=== PATIENT | male | born 1945 | race Caucasian/White ===

== ENCOUNTER 2017-05-01 08:31 | Inpatient (IN) | payer OTHER ==
--- NOTE | 2017-04-25 15:51 | GHP ---
[f rep st] PREOP HISTORY AND PHYSICAL DATE OF ADMISSION: 05/01/2017 DIAGNOSIS: Right knee osteoarthritis. PLANNED SURGERY: Right knee total knee arthroplasty. HPI: Patient is a 71-year-old male with a long history of right knee pain secondary to osteoarthriti s. He has had a long course of conservative treatment including physical therapy, bracing and cortis one injections. After a long course of therapy, he has essentially continued to have pain and now re quires surgical intervention. PAST MEDICAL HISTORY: History of anxiety, osteoarthritis of bilateral knees. PAST SURGERY HISTORY: Tonsillectomy, cataract surgery left eye for detached retina, and right knee a rthroscopy. MEDICATIONS: Levothyroxine, metoprolol, Prevnar 13 and triamterene/hydrochlorothiazide. ALLERGIES: No known drug allergies. SOCIAL HISTORY: Occasional alcohol use. No tobacco or drug use. PHYSICAL EXAM: GENERAL: He is alert and oriented. NECK: Supple. No carotid bruits are heard. Fu ll range of motion. CARDIAC: Regular rate and rhythm. Normal S1, S2. PULMONARY: Lungs are clear. ABDOMEN: Normoacti ve bowel sounds. Nontender, nondistended. ASSESSMENT AND PLAN: Patient has a long history of right knee pain secondary to osteoarthritis. Aft er discussing risks and benefits of surgery, which were detailed for him today, he would like to proc eed forward with operative intervention. /[id number]/MODL
[~2017-05-01 08:31] MED LIST: ACETAMINOPHEN 500 MG TAB PO ONE; ROPIVACAINE 0.2% 80 MG, EPINEPHrine 0.2 MG, KETOROLAC TROMETHAMINE 30 MG, morphINE 10 M... IU ONE; TRANEXAMIC ACID 3,000 MG in NS 50 ML IRR ONE; ceFAZolin 2 GM/SWFI 2 GM/20 ML SYR IVP ONE
[2017-05-01] MEDS ORDERED: BUPIVACAINE/EPI 0.5% 30 ML SDV ONE (08:36)
[2017-05-01] MEDS ORDERED: CALCIUM CHLORIDE 1 GM/10 ML INJ ONE (08:37)
[2017-05-01] MEDS ORDERED: THROMBIN (BOVINE) 5,000 UNIT VIAL TP ONE (08:37)
[2017-05-01] MEDS ORDERED: POLYMYXIN B SULFATE 500,000 UNIT/10 ML SYR IRR ONE (08:37)
[2017-05-01] MEDS ORDERED: BACITRACIN 50,000 UNITS/10 ML SYR IRR ONE (08:37)
[2017-05-01] MEDS ORDERED: LR 1,000 ML IV ONE (09:35)
[2017-05-01] MEDS ORDERED: ACETAMINOPHEN 500 MG TAB ONE (10:20)
[2017-05-01] MEDS ORDERED: ceFAZolin 2 GM/SWFI 20 ML SYR IVP ONE (10:20)
--- NOTE | 2017-05-01 11:10 | PDHPUP ---
History & Physical Update H&P update statement: This history and physical update is based on an assessment of the patient which was completed after admission or registration (within 24 hours), but prior to the surgery/procedure. H&P update: H&P reviewed & patient examined, no change in patient's condition since H&P completed
--- NOTE | 2017-05-01 13:21 | PDANEPAE ---
ANE History of Present Illness right knee OA ANE Past Medical History - Cardiovascular History Hx Hypertension: Yes Hx Arrhythmias: No Hx Chest Pain: No Hx Coronary Artery / Peripheral Vascular Disease: No Hx CHF / Valvular Disease: No Hx Palpitations: No Cardiovascular History Comment: WELL CONTROLLED - Pulmonary History Hx COPD: No Hx Asthma/Reactive Airway Disease: No Hx Recent Upper Respiratory Infection: No Hx Oxygen in Use at Home: No Hx Sleep Apnea: No Sleep Apnea Screening Result - Last Documented: Negative - Neurologic History Hx Cerebrovascular Accident: No Hx Seizures: No Hx Dementia: No - Endocrine History Hx Diabetes: Yes Endocrine History Comment: HYPOTHYROID - Renal History Hx Renal Disorders: No - Liver History Hx Hepatic Disorders: No - Neurological & Psychiatric Hx Hx Neurological and Psychiatric Disorders: No - Cancer History Hx Cancer: No - Congenital Disorder History Hx Congenital Disorders: No - GI History Hx Gastrointestinal Disorders: Yes Gastrointestinal History Comment: ACID REFLUX - Other Health History Other Health History: NEG - Chronic Pain History Chronic Pain: Yes (KNEE PAIN L) - Surgical History Prior Surgeries: TONSILLECTOMY. SCOPE L KNEE. CATARACTS. RETINAL SURGERY ANE Review of Systems Review of Systems: - Exercise capacity METS (RN): 4 METS ANE Patient History - Allergies Allergies/Adverse Reactions: No Known Allergies Allergy (Unverified 04/02/17 11:22) - Home Medications Home medications: home medication list seen and reviewed Home Medications: Aspirin [Aspirin 81mg (*)] 81 mg PO HS 04/02/17 [Last Taken 1 Week Ago ~04/24/17 ] C/E/Zn/Cu/OM3/DHA/EPA/LUT/ZEAX [Preservision Areds 2 Softgel] 1 each PO DAILY [Last Taken 1 Week Ago ~04/24/17] Carboxymethylcellulose 1% [Refresh Celluvisc (*)] 1 drop EACHEYE DAILY PRN 04/02 [Last Taken Unknown] Cholecalciferol Vit D3 [Vitamin D3 2000 units tab (OTC)] 4,000 units PO DAILY [Last Taken 1 Week Ago ~04/24/17] Levothyroxine [Synthroid 50 mcg (*)] 50 mcg PO DAILY06 04/02/17 [Last Taken Unknown] Metoprolol Succinate Xr [Toprol Xl 100 mg (*)] 100 mg PO DAILY 04/02/17 [Last Taken 05/01/17] Multivitamins [Multivitamin (*)] 1 each PO DAILY 04/02/17 [Last Taken 1 Week Ago ~04/24/17] [place]-3 Fatty Acids [Fish Oil 1000 mg (*)] 2,000 mg PO BID 04/02/17 [Last Taken 1 Week Ago ~04/24/17] Omeprazole [Prilosec 20 mg] 20 mg PO HS 04/02/17 [Last Taken Unknown] Triamterene/Hydrochlorothiazid [Triamterene-Hctz 37.5-25 mg Cp] 1 each PO DAILY 04/02/17 [Last Taken 1 Week Ago ~04/24/17] - NPO status NPO Since - Liquids (Date): 05/01/17 NPO Since - Liquids (Time): 05:30 NPO Since - Solids (Date): 04/30/17 NPO Since - Solids (Time): 20:30 - Smoking Hx Smoking Status: Former smoker - Family Anes Hx Family Hx Anesthesia Complications: NEG ANE Labs/Vital Signs - Vital Signs Blood Pressure: 149/93 Heart Rate: 71 Respiratory Rate: 18 O2 Sat (%): 92 Height: 165.1 cm Weight: 80.739 kg ANE Physical Exam - Airway Neck exam: FROM Mallampati Score: Class 2 Mouth exam: normal dental/mouth exam - Pulmonary Pulmonary: no respiratory distress - Cardiovascular Cardiovascular: regular rate and rhythym - ASA Status ASA Status: II ANE Anesthesia Plan Anesthesia Plan: spinal Regional Anesthesia: single shot NB, adductor canal FNB Urgent/Emergent Case: Vivian morrison completed preop but documented later for safe timely pt care
[2017-05-01] MEDS ORDERED: PHENYLEPHRINE HCL 100 MCG/ML SYR ONE (14:55)
[2017-05-01] MEDS ORDERED: PROPOFOL/EMULSION 500 MG/50 ML BOTTLE IV ONE (14:58)
[2017-05-01] MEDS ORDERED: fentaNYL 100 MCG/2 ML INJ IVP PRN (15:31)
[2017-05-01] MEDS ORDERED: LR 500 ML IV PRN (15:31)
[2017-05-01] MEDS ORDERED: HYDROmorphONE/DILAUDID 1 MG/ML INJ IVP PRN (15:31)
[2017-05-01] MEDS ORDERED: ONDANSETRON 4 MG/2 ML VIAL IVP PRN ×2 (15:31→15:56)
[2017-05-01] MEDS ORDERED: ALBUTEROL 3 ML DEYVIAL IH PRN (15:31)
[2017-05-01] MEDS ORDERED: NALOXONE HCL 0.4 MG/ML INJ IVP PRN (15:31)
[2017-05-01] MEDS ORDERED: HYDROCODONE/APAP 5/325 TAB PO PRN (15:31)
[2017-05-01] MEDS ORDERED: OXYCODONE/APAP 5/325 TAB PO PRN (15:31)
[2017-05-01] MEDS ORDERED: ACETAMINOPHEN 500 MG TAB PO PRN (15:31)
[2017-05-01] MEDS ORDERED: MAGNESIUM HYDROXIDE 30 ML UDCUP PO PRN (15:56)
[2017-05-01] MEDS ORDERED: PROMETHAZINE HCL 25 MG SUPPR PR PRN (15:56)
[2017-05-01] MEDS ORDERED: TAPENTADOL HCL 50 MG TAB PO PRN (15:56)
[2017-05-01] MEDS ORDERED: METOCLOPRAMIDE 10 MG/2 ML VIAL IVP PRN (15:56)
[2017-05-01] MEDS ORDERED: PROMETHAZINE HCL 25 MG/ML INJ IVP PRN (15:56)
[2017-05-01] MEDS ORDERED: DIPHENOXYLATE/ATROPINE LOMOTIL 1 TAB PO PRN (15:56)
[2017-05-01] MEDS ORDERED: TEMAZEPAM 15 MG CAP PO PRN (15:56)
[2017-05-01] MEDS ORDERED: ONDANSETRON DISINTEGRATING 4 MG TAB PO PRN (15:56)
[2017-05-01] MEDS ORDERED: CYCLOBENZAPRINE 10 MG TAB PO PRN (15:56)
[2017-05-01] MEDS ORDERED: POLYETHYLENE GLYCOL 3350 17 GM PKT PO PRN (15:56)
[2017-05-01] MEDS ORDERED: diphenhydrAMINE 25 MG CAP PO PRN (15:56)
[2017-05-01] MEDS ORDERED: LACTULOSE 20 GM/30 ML UDCUP PO PRN (15:56)
[2017-05-01] MEDS ORDERED: BISACODYL 10 MG SUPP PR PRN (15:56)
--- NOTE | 2017-05-01 15:56 | POSTOPPROG ---
Post Op Note Date of Operation: 05/01/17 Surgeon: Madhuri Real Heavy Duty Press Operator: coltrain Anesthesia: Epidural, Other (Specify) Pre-op Diagnosis: r knee oa Procedure: r tkr Inf/Abcess present in the surg proc area at time of surgery?: No Depth: Deep Incisional (Fascial) EBL: 100-500
[2017-05-01] MEDS ORDERED: CARBOXYMETHYLCELLULOSE 1% 0.4 ML DROPERETTE EACHEYE PRN (15:58)
[2017-05-01] MEDS ORDERED: LR 1,000 ML IV SCH (16:00)
--- NOTE | 2017-05-01 17:15 | GOP ---
[f rep st] OPERATIVE REPORT DATE OF OPERATION: 05/01/2017 SURGEON: Madhuri Real MD RESEARCH DEVELOPMENT DIRECTOR: Cristóbal Jennings, CSFA, LSA, whose presence was medically necessary. ANESTHESIA: By epidural plus adductor nerve block per Surgeon's request. PREOPERATIVE DIAGNOSIS: Right knee osteoarthritis. POSTOPERATIVE DIAGNOSIS: Right knee osteoarthritis. PROCEDURE PERFORMED: Right total knee arthroplasty. FINDINGS: INDICATIONS: This is a 71-year-old male with a several-month history of right knee pain worsening wi th use and with time despite multiple conservative measures. X-ray exam reveals [id number] osteoar thritic changes. He wishes to have surgery in order to resolve the problem. DESCRIPTION OF PROCEDURE: The patient was brought to the operating room after the right side had bee n identified as correct side by the patient, nurse and physician. Once in the operating room, was gi reyes an adductor canal nerve block. He was then given epidural nerve block, placed supine on the oper ating room table. Tourniquet was placed around the upper portion of the right leg and the right lowe r extremity was sterilely prepped and draped in the usual fashion using a GSI solution. Once prepped and draped, limb was exsanguinated, tourniquet inflated to 250 mmHg. A linear incision was made on the anterior portion of the knee 1 handbreadth above and below the river lla, and with sharp dissection carried down through the skin and subcutaneous layers, with bleeding c ontrolled using electrocautery. A medial parapatellar approach was made through the extensor mechani sm with patella brought to the side but not everted. It was noted to have [id number] osteoarthriti c changes in the medial compartment, and grade 3-4 chondral changes noted to the patellofemoral luis rtment, and grade 3 chondral changes noted laterally. The ACL as well as medial and lateral meniscus were removed. Drill hole was made 1 cm anterior to th e intercondylar notch, with an intramedullary guide placed within the femur. The end cutting block w as set at 5 degrees of valgus. Once pinned into place, the intramedullary guide was removed, and an oscillating saw was used to remove the distal portion of the femur. Once achieving a smooth cut, the cutting block was removed. Cartilage was removed off the posterior condyles of the femur. The sizi ng guide was put in place with a size 7, seemed to fit best without notching the anterior cortex of t he femur. Therefore, drill holes were made and a size 7, 4-in-1 cutting block was put into place. T he anterior, posterior and chamfer cuts were made, and a size 7 trial was put into place, noted to fi t securely. The leg was able to achieve full extension, suggesting adequate amount of bone had been removed. Once centered properly on the distal end of the femur, lug holes were drilled for the femoral compone nt. Femoral trial was removed. The knee was brought to maximum flexion, tibia subluxed anteriorly a nd an external tibial guide was put into place, set in neutral varus/valgus and set in a minor amount of posterior slope. It was set to remove 2 mm from the low side of the femur. Once pinned into karen ce, a drop evonne was used to ensure proper alignment of the tibial tray. Once proper alignment was ens ured, a locking pin was placed within the cutting block. Oscillating saw was used to remove the prox imal portion of the tibia. Once removed, trial femoral component and trial tibial tray with liner we re put into place, and the knee was able to achieve full extension suggesting adequate amount of bone had been removed. The trials were then removed. The knee brought back to maximal flexion, tibia subluxed anteriorly. Multiple trials were placed on the tibia, noted a size E was noted to fit best. Therefore, it was pi nned into place. Medullary drill and a keel punch passed through the tibial tray after pins been rem althea from the tibia. The trial was then removed from the tibia. The knee was brought to full extens ion. The patella was then everted, measured to be 24 mm in thickness. Oscillating saw was used to r emove the posterior portion of the patella, leaving 15 mm of bone. Multiple trials were sized on the cut surface of the knee, noted a 35 mm patella button seemed to fit best and lug holes were drilled for a 35 mm button. All cut surfaces of bone were thoroughly irrigated with an antibiotic solution using pulsatile lavage , while cement was being mixed. Joint cocktail was injected in the posterior capsule along the perio steum of the femur and the tibia, and into the extensor mechanism. Once cement was doughy, it was pl aced on the proximal tibia and a size E Persona tibial tray from the Joshua was put into place, and e xcess cement removed using a [place] elevator. Cement was then placed on the posterior skids of the fe moral component with cement placed on the distal and anterior portions of the femur, with a size 7 ri ght cruciate-retaining Persona knee component from Joshua put into place, and excess cement removed u sing [place] elevator. Trial liner was placed in the tibial tray and the knee was brought to full exte nsion in order to pressurize cement. Cement was placed on the cut surface of the patella with a 35 m m patellar button clamped into place and excess cement removed using [place] elevator. Once cement had adequately hardened, any excess cement that was found was removed using combination of osteotome and rongeur. Multiple trials were placed in the tibial tray, note a 10 mm insert seemed to fit best. T herefore, a 10 mm Persona polyethylene component was put into the tibial tray. Once locked into plac e, the knee was thoroughly irrigated with tranexamic acid. The tourniquet was released at 48 minutes. Any bleeding was controlled using electrocautery. The wo und was then closed in layers using 0 Vicryl suture in a xacmia-xk-djgah type stitch for the extensor mechanism with Plasmagel placed intra-articularly; 0 Vicryl and 2-0 Vicryl suture for the subcutaneo us layers with Plasmagel placed external to the extensor mechanism, and a 3-0 V-Loc suture in a runni ng subcuticular stitch to close the skin. Then, 30 cc of Marcaine was infused around the actual skin incision itself. The wound was dressed with Steri-Strips, Xeroform, 4 x 4's, wrapped in Kerlix. Theresa g was completely undraped in the operating room, tourniquet removed from the thigh and an Blaine wrap pl aced around the knee. The patient was then transferred onto a stretcher, and sent to recovery room in good condition. TOURNIQUET TIME: 48 minutes. /[id number]/MODL
[2017-05-01] MEDS: traMADol 50 MG TAB PO SCH ×2 (18:01→23:37)
[2017-05-01] MEDS: ACETAMINOPHEN 325 MG TAB PO SCH ×2 (18:01→23:37)
[2017-05-01] MEDS: KETOROLAC 30 MG/1 ML SDV IVP SCH ×2 (18:02→23:37)
[2017-05-01] MEDS ORDERED: PANTOPRAZOLE SODIUM 40 MG TAB PO SCH (21:00)
[2017-05-01] MEDS: SENNOSIDES/DOCUSATE SODIUM TAB PO SCH (21:52)
[2017-05-01] MEDS: ceFAZolin 2 GM/DEXTROSE 100 ML IV SCH (21:52)
[2017-05-01] MEDS: FAMOTIDINE 20 MG TAB PO SCH (21:52)
[2017-05-01] MEDS: oxyCODONE IR 5 MG TAB PO PRN (21:53)
[2017-05-02] MEDS: ceFAZolin 2 GM/DEXTROSE 100 ML IV SCH (05:18)
[2017-05-02] MEDS: ACETAMINOPHEN 325 MG TAB PO SCH ×2 (05:18→12:35)
[2017-05-02] MEDS: KETOROLAC 30 MG/1 ML SDV IVP SCH ×2 (05:18→13:29)
[2017-05-02] MEDS: traMADol 50 MG TAB PO SCH ×2 (05:18→12:35)
[2017-05-02 05:27] LABS: HEMATOCRIT 35.8 % (40.0-51.0); HEMOGLOBIN 12.5 g/dL (13.7-17.5)
[2017-05-02] MEDS ORDERED: LEVOTHYROXINE 50 MCG TAB PO SCH (06:00)
[2017-05-02 08:09] VITALS: RESP 14; TEMP 97.9
[2017-05-02] MEDS: oxyCODONE IR 5 MG TAB PO PRN ×3 (08:45→13:31)
[2017-05-02] MEDS: FAMOTIDINE 20 MG TAB PO SCH (08:46)
[2017-05-02] MEDS: SENNOSIDES/DOCUSATE SODIUM TAB PO SCH (08:46)
[2017-05-02 08:47] VITALS: BP 108/72; PULSE 74
[2017-05-02] MEDS ORDERED: FLU VACC QS 2017-18 (3YR+)/PF 0.5 ML SYR (FLUARIX QUAD) IM ONE (08:49)
[2017-05-02] MEDS ORDERED: RIVAROXABAN 10 MG TAB PO SCH (09:00)
[2017-05-02] MEDS ORDERED: TRIAMTERENE/HCTZ 37.5/25 1 EACH CAP PO SCH (09:00)
[2017-05-02] MEDS ORDERED: METOPROLOL SUCCINATE XR 100 MG TAB PO SCH (09:00)
[2017-05-02 11:11] VITALS: O2SAT 91
--- NOTE | 2017-05-02 12:04 | SOAPPROG ---
SOAP Progress Note Assessment/Plan: Assessment: Plan: d/c home with PT 05/02/17 12:03 Subjective: Pt doing well, ready for d/c Objective: Vital Signs Temp Pulse Resp BP Pulse Ox 36.6 C 74 14 108/72 91 L 05/02/17 08:08 05/02/17 08:45 05/02/17 08:08 05/02/17 08:45 05/02/17 10:03 Laboratory Results 05/02/17 04:41 05/01/17 05/02/17 05/03/17 05:59 05:59 05:59 Intake Total 2340 200 Output Total 50 175 Balance 2290 25 Dressing CDI, calf NT, NVI - Time Spent With Patient Time Spent With Patient: 10 - Pending Discharge Pending Discharge Within 24 Hours: Yes Pending Discharge Within 48 Hours: No Pending Discharge Date: 05/03/17 Pending Discharge Time: 11:00 ICD10 Worksheet Patient Problems: Problems Problem Status Onset Arthritis of right knee Acute - ICD10 Problem Qualifiers (1) Arthritis of right knee
--- NOTE | 2017-05-02 12:06 | PDIAF ---
- Diagnosis Code Status: Full Code - Medication Management Discharge Medications: Medications to Continue on Transfer Aspirin [Aspirin 81mg (*)] 81 mg PO HS 04/02/17 [Last Taken 1 Week Ago ~04/24/17 ] C/E/Zn/Cu/OM3/DHA/EPA/LUT/ZEAX [Preservision Areds 2 Softgel] 1 each PO DAILY [Last Taken 1 Week Ago ~04/24/17] Carboxymethylcellulose 1% [Refresh Celluvisc (*)] 1 drop EACHEYE DAILY PRN 04/02 [Last Taken Unknown] Cholecalciferol Vit D3 [Vitamin D3 2000 units tab (OTC)] 4,000 units PO DAILY [Last Taken 1 Week Ago ~04/24/17] Levothyroxine [Synthroid 50 mcg (*)] 50 mcg PO DAILY06 04/02/17 [Last Taken Unknown] Metoprolol Succinate Xr [Toprol Xl 100 mg (*)] 100 mg PO DAILY 04/02/17 [Last Taken 05/01/17] Multivitamins [Multivitamin (*)] 1 each PO DAILY 04/02/17 [Last Taken 1 Week Ago ~04/24/17] [place]-3 Fatty Acids [Fish Oil 1000 mg (*)] 2,000 mg PO BID 04/02/17 [Last Taken 1 Week Ago ~04/24/17] Omeprazole [Prilosec 20 mg] 20 mg PO HS 04/02/17 [Last Taken Unknown] Triamterene/Hydrochlorothiazid [Triamterene-Hctz 37.5-25 mg Cp] 1 each PO DAILY 04/02/17 [Last Taken 1 Week Ago ~04/24/17] oxyCODONE IR [Oxycodone Ir (*)] 5 - 10 mg PO Q3HRS PRN tab 05/02/17 [Last Taken Unknown] traMADol [Ultram 50 mg (*)] 50 mg PO Q6HRS tab 05/02/17 [Last Taken Unknown] Discharge Medications: Refer to the Discharge Home Medication list for PRN reason. PICC Care - Routine: N/A - Orders Services needed: Physical Therapy Diet Recommendation: no restrictions on diet Diet Texture: Regular Texture Diet Nice: Not applicable - Follow Up Care Current Providers and Referrals: Vero Vargas NP [Primary Care Provider] - Madhuri Real MD [Medical Doctor] -
--- NOTE | 2017-05-02 13:55 | ASDISCHSUM ---
Discharge Information Plan Status:Home with No Needs Medically Cleared to Leave: Discharge Date:05/02/2017 01:40 PM CM D/C Disposition:Home, Routine, Self-Care ADT D/C Disposition:Home, Routine, Self-Care Projected Discharge Date:05/02/2017 01:40 PM Transportation at D/C: Discharge Delay Reason: Follow-Up Date:05/02/2017 01:40 PM Discharge Slot: Final Diagnosis: Placement Information Patient Contact Information Contact Name:JOHNNY Relationship: Address:[address] [place] Phone: [facility]/Zip Code:[place] [address] Email: Financial Information Financial Class:Medicare Advantage Plans Primary Plan Desc:[facility] ADV[employer]AGE PLANS Primary Plan Number:[id number] Secondary Plan Desc: Secondary Plan Number: Assessment Information [facility] CM Progress Note CM Note CM Note Notes: Pt medically stable for d/c, no CM d/c needs identified Date Signed: 05/02/2017 01:55 PM Electronically Signed By:DINO Chau Intervention Information
== END 2017-05-02 13:40 | disposition home or self-care (01) | DRG 470 ==
LOC: F3N 08:31
PROVIDERS: ADMIT Orthopaedic Surgery; ATTEND Orthopaedic Surgery
PROC: 0SRC0J9 Replacement of Right Knee Joint with Synthetic Substitute, Cemented, Open Approach (ICD-10-PCS; principal; 2017-05-01 12:00)
DX: M17.11 Unilateral primary osteoarthritis, right knee (principal); I10 Essential (primary) hypertension; E03.9 Hypothyroidism, unspecified; Z23 Encounter for immunization
CPT/HCPCS: 97161-GP; 97165-GO; C1713; G0008; G8978-GP-CI; G8979-GP-CI; G8980-GP-CI; G8987-GO-CI; G8988-GO-CI; G8989-GO-CI; J0171; J0690; J1885; J2370; J2704; J2795

== ENCOUNTER → 2017-12-07 | Outpatient (CLI) | payer OTHER | LOC: CIMAGING 10:32 | PROVIDERS: ATTEND Nurse Practitioner | DX: M25.552 Pain in left hip (principal); M51.36 Other intervertebral disc degeneration, lumbar region; M47.816 Spondylosis without myelopathy or radiculopathy, lumbar region; I10 Essential (primary) hypertension | CPT/HCPCS: 73502-PO ==